=== PATIENT | female | born 1925 | race Caucasian/White ===

== ENCOUNTER 2017-03-28 14:27 | Inpatient (IN) | payer MEDICARE, MEDICAID ==
[~2017-03-28] VITALS: Ht 162.6 cm; Wt 67.7 kg
[~2017-03-28 14:27] MED LIST: ACETAMINOPHEN325 M2 PO; ACID REDUCER OR; ALBUTEROL0.09 MG/A1 IH; ALLOPURINOL100 M1 PO; ALLOPURINOL100 MG PO; AMARYL 2MG TABLE2 MG PO; AMARYL2 MG PO; AMIODARONE HYD200 MG PO; AMLO5TAB PO; ASPIR-LOW81 MG PO; ASPIRIN 325MG325 MG PO; ASPIRIN 81MG TA81 MG PO; AVAPRO 150MG T150 MG PO; AZITHROMYCIN250 MG PO; BACTRIM DS 8001 TAB PO; BENTYL GENERIC10 MG PO; BUMETANIDE 1MG T1 MG PO; CALCIUM 600 +1 EAC1 PO; DIAZEPAM IV; DIOVAN320 MG PO; FERROUS SU300 MG/5 M PO; FERROUS SULFAT325 M2 PO; FEVERALL650 MG PR; FLAGYL500 MG PO; FUROSEMIDE 20MG20 MG PO; GEMFIBROZIL600 M1 PO; GLUCAGEN HYPOKIT1 MG IJ; GLUTOSE 1515 GM PO; HUMALOG KW100 UNIT/1 SQ; HUMALOG100 U/ML SC; ICAPS AREDS FO1 EACH PO; ICAPS AREDS SO1 EACH PO; JANUVIA50 MG PO; K-DUR 1010 MEQ PO; K-DUR 20MEQ TA20 MEQ PO; LABETALOL 100M100 MG PO; LEVOTHYROXIN0.112 M1 PO; LEVOTHYROXIN0.112 MG PO; LEVOTHYROXIN0.125 MG PO; LODRANE 24D 121 C24 PO; LOPRESSOR 25MG.25 MG PO; LOPRESSOR 50 MG50 MG PO; LORAZEPAM 2MG2 MG/M1 IM; LORTAB 5/500 501 TAB PO; MIRALAX17 GM/DOSE PO; MIRALAX17 GM/PACK PO; MULTI-DAY VITA1 EACH PO; NATURAL SENNA8.6 MG PO; NITROGLYCERIN0.4 MG SL; NITROLINGU0.4 MG/ACT SL; NORVASC10 MG PO; PANTOPRAZOLE SO40 M1 PO; PLAVIX75 MG PO; PRAVACHOL20 MG PO; PRAVASTATIN 40M40 MG PO; PRESERVISION1 SGL PO; PROTONIX40 MG/PACK PO; RANITIDINE 7575 MG PO; RANITIDINE HCL150 MG OR; ROBAFEN100 MG/5 M PO; SEPTRA DS 800 M1 TAB PO; TESSALON PERLE100 MG PO; TRAMADOL 50MG T50 M1 PO; TRIAMCINOL30 GM/TUBE TP; VYTORIN 10 MG-41 TAB PO; eye vitamin OR; ferrous PO
[2017-03-28 14:30] VITALS: BP 142/64
--- NOTE | 2017-03-28 14:58 | Emergency Room Report ---
History of Present Illness Time Seen by MD Velazco Presenting Problem in Triage Pt arrived:Wheelchair Presenting Problem:PT C/O INCREASED WEAKNESS OVER THE PAST COUPLE OF DAYS. 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 N Clinical Suspician of Infection? N Mental Status: 1 - Regular (Normal Baseline) Sepsis Risk:Low Sepsis Risk Have you (or family members/close friends) recently traveled outside the [place]? N If Yes, where/when: Have you had exposure to infectious disease within the past month? N TB? Other? Specify: This 89 years old white female with see cardiac and cerebrovascular history. She has progressive shortness of breath weakness and lower extremity edema in spite of increasing her diuretics. Source patient, RN notes reviewed, family, EMS Exam Limitations no limitations ALLERGIES Coded Allergies: Penicillins (Mild, I-RASH 05/26/16) sulfamethoxazole (From BACTRIM) (05/26/16) trimethoprim (From BACTRIM) (05/26/16) Home Medications Active Scripts Amlodipine Besylate (Amlodipine) 5 MG PO DAILY #30 TAB Ref 1 Prov: 07/28/16 Ferrous Sulfate (Ferrous Sulfate Elixir 5ML [facility] [place]) 300 MG PO BID #30 Ref 3 Prov: 07/28/16 Metoprolol Tartrate (Lopressor) 50 MG PO BID #30 TAB Ref 6 Prov: 07/28/16 Pravastatin Sodium (Pravachol) 20 MG PO QHS #30 TAB Ref 6 Prov: 07/28/16 ALLOPURINOL (Allopurinol 100MG) 200 MG PO DAILY #30 TAB Ref 5 Prov: 07/28/16 AMIODARONE HCL (Amiodarone Hydrochloride) 200 MG PO DAILY #30 TAB Ref 5 Prov: 07/28/16 ASPIRIN (Aspirin) 81 MG PO DAILY #30 Ref 5 Prov: 07/28/16 Pantoprazole Sodium (Protonix) 40 MG PO DAILY #30 Ref 5 Prov: 07/28/16 Acetaminophen (Feverall 650MG SUPP) 650 MG IN Q4HP PRN INCREASED TEMP. #14 Ref 4 Prov: 07/28/16 POTASSIUM CHL (Potassium Chloride) 20 MEQ PO BID #30 Ref 5 Prov: 07/28/16 TRAMADOL HCL (Tramadol) 50 MG PO Q6HP PRN MODERATE PAIN #30 TAB Ref 4 Prov: 07/28/16 IRBESARTAN (Irbesartan) 150 MG PO BID #30 TAB Ref 5 Prov: 07/28/16 Acetaminophen (Acetaminophen Tab) 650 MG PO Q4HP PRN MILD PAIN OR FEVER #30 TAB Ref 5 Prov: 07/28/16 Sitagliptin Phosphate (Januvia) 50 MG PO DAILY-DM #30 TAB Ref 5 Prov: 07/28/16 Reported Medications Dextrose (Glutose 15) 15 GM PO PRN PRN BLOOD SUGAR #1 CALCIUM CARBONATE (Calcium) 600 MG PO DAILY Vit A/Vit C/Vit E/Zinc/Copper (Icaps Areds Formula Dr Tablet) 1 EACH PO 2XDAILY Multivitamin (Multi-Day Vitamins) 1 EACH PO DAILY LEVOTHYROXINE SOD (Synthroid) 0.1 MG PO DAILY NITROGLYCERIN (Nitrostat) 0.4 MG SL [id number] PRN CHEST PAIN History Medical History General CAD? Yes Angina: No ND: No Hypertension? Yes Hyperlipidemia? Yes CHF? No DVT? No PE? No COPD? No Asthma? No Anemia? Yes GERD? No Gastric ulcers? No GI Bleed? Yes Hernia? No Thyroid Problems? Yes Hypothyroidism? Yes CVA? No Seizures? No Diabetes? Yes Insulin Dependent: No Insulin Pump: No Home FSBS? No Renal Insuffiency? Yes End Stage Renal Disease? No UTI? No Stones? Yes BPH? No GB Disease: Yes Nephritic Syndrome? No Asplenia? No Hepatitis? No Sickle Cell Disease? No Arthritis? No Migraines? No Cataracts? Yes Glaucoma? No MRSA? No HIV? No TB? No Anxiety? No Depression? No Cancer? Yes Site: COLON More? Yes Additional hx: ATRIAL FIB. Thoracic AA CABG x 3 V Colon CA Immunization Hx DT/Tetanus Unknown Flu REFUSES Pneumonia Received In Past Surgical Hx Previous Surgery?Y CAROTID ENDARECTOMY GALLBLADDER BI-LAT CATARACTS HEART CATH/STENTS CABG 2012 Family History Family Hx Diabetes Yes CAD No Hypertension Yes Hyperlipidemia Yes Cancer Yes TB No Social History Smoking Hx Smoker: Former Smoker Tobacco: No Packs/day N/A Alcohol Alcohol: No Review of Systems All Other Systems Reviewed and Negative Constitutional no symptoms reported, see HPI, weakness Eyes no symptoms reported ENT no symptoms reported. Respiratory no symptoms reported, shortness of breath Cardiovascular no symptoms reported Gastrointestinal no symptoms reported Genitourinary no symptoms reported. Musculoskeletal no symptoms reported Skin no symptoms reported Psychiatric/Neurological no symptoms reported Physical Exam Vital Signs Vital Signs Date Time Temp Pulse Resp B/P Pulse O2 O2 Flow FiO2 Ox Delivery Rate 03/28 1510 64 16 148/61 100 03/28 1430 98.1 68 16 142/64 98 - WBC >12,000 or <4,000 or 10% bands? 2 or more SIRS Criteria Met? B/P:142/64 MAP:90 Creatinine >2.0? UA output<0.5ml/kg/hr for 2 hrs? Platelet count >100,000? Lactate >2.0mmol/1? INR >1.2 or PTT > than 60 sec? Evidence of Organ Dysfunction? Provider documented clinical suspician of infection? N Sepsis Criteria Count: 0 Sepsis Risk: Low Sepsis Risk General Appearance normal appearance, WD/WN Eye Exam - bilateral eye normal exam, bilateral eye PERRL, bilateral eye EOMI Ear, Nose, Throat hearing grossly normal, normal ENT inspection Neck normal inspection, non-tender, supple, full range of motion Respiratory Status Yes: trachea midline, chest symmetrical, non tender chest. No: respiratory distress. Lung Sounds bilateral: normal breath sounds, lungs clear. Cardiovascular normal exam, regular rate/rhythm, no peripheral edema, no gallop, no JVD, no murmur, no rub, normal peripheral pulses Gastrointestinal normal bowel sounds, normal exam, non tender, soft, no organomegaly, INCREASED ABDOMINAL (GIRTH) Extremities non-tender, normal range of motion, swelling, 2+ EDEMA Neurologic alert, new order clerk II-XII nml as tested, normal exam, oriented x 3 Lymphatic no adenopathy Medical Decision Making LABS/Meds/Orders Pt receiving controlled substance in ED? No Results/Orders Laboratory Tests 03/28/17 1450: Lactic Acid 1.8 03/28/17 1450: B-Natriuretic Peptide 521 H 03/28/17 1450: Sodium 128 L, Potassium 3.4 L, Chloride 92 L, Carbon Dioxide 28, BUN 24 H, Creatinine 1.4 H, Estimated Creat Clear 26 L, Estimated GFR (MDRD) 35 L, Glucose 179 H, Calcium 8.1 L, Total Bilirubin 0.8, AST 38 H, ALT 31, Alkaline Phosphatase 114, Creatine Kinase 44, CK-MB (CK-2) Rel Index 3.6, CK and CKMB Interp 1.6, Troponin I 0.03, Total Protein 5.4 L, Albumin 2.1 L, Globulin 3.3 H, Albumin/Globulin Ratio 0.6 L, WBC 21.7 *H, RBC 3.76 L, Hgb 9.1 L, Hct 29.1 L, MCV 77.5 L, RDW 17.0, Plt Count 425 H, MPV 6.0 L, Gran % 90.4 H, Gran # 19.6 H, Total Counted 100, Lymphocytes % 5.7 L, Monocytes % 3.7, Eosinophils % 0.1, Basophils % 0.1, Neutrophils 84 H, Band Neutrophils 1, Lymphocytes (Manual ) 11, Lymphocytes # 1.2, Monocytes (Manual) 3, Monocytes # 0.8, Eosinophils # 0.0, Eosinophils # (Manual) 1, Basophils # 0.0, Platelet Estimate NORMAL, Hypochromasia 1+, PUBS MCHC 31.2 L, MCH 24.2 L Current Medication Orders Sig/Dang Start time Last Medication Dose Route Stop Time Status Admin Sodium Chloride 10 ML PRN PRN 03/28 1445 AC IV 03/29 1439 Orders Procedure Date/time Status Decision to admit 03/28 1536 Active BRAIN NATRIURETIC PEPTIDE 03/28 1454 Complete DIFFERENTIAL-WBC 03/28 1450 Complete ELECTROCARDIOGRAM REQUEST 03/28 1440 Active IV SALINE LOCK 03/28 1440 Active CULTURE, BLOOD 03/28 1440 Active URINALYSIS/COMPLETE 03/28 1440 Active LACTIC ACID 03/28 1440 Complete CBC WITH AUTO DIFF 03/28 1440 Complete CARDIAC ENZYMES 03/28 144 Complete CHEM 12 PROFILE 03/28 1440 Complete CM/EKG CM/EKG EKG NORMAL SINUS RHYTHM 65/M.POOR R WAVE pROGRESSION BASELINE ARTIFACT NONSPECIFIC st AND t WAVE CHANGES CANNOT EXCLUDE ISCHEMIA Departure Departure Time of Disposition 1456 Disposition DC/XFER from ER to [facility] Clinical Impression Primary Impression: CHF (congestive heart failure), NYHA class IV Secondary Impressions: CAD (coronary artery disease), CVA (cerebral vascular accident), Pneumonia Condition STABLE Referrals Falluji MD,Nezar Additional Instructions I spoke with Dr. Hdz accepted the patient was admitted. For pneumonia and congestive heart failure Discharge Counseling Counseled pt/family regarding diagnosis, test results, medications/RX, home care ED Critical Care Critical Care No If Critical Care minutes are documented, the time involved in the performance of seperately reportable procedures was not counted toward critical care time documented. I directly delivered medical care to this critically ill and/or injured patient. Timely evaluation and treatment was necessary to address the significant organ system(s) dysfunction present in this patient. at 1605
[2017-03-28 15:05] LABS: LYMPH # 1.2 K/mm3 (0.7-4.5); LYMPH % 5.7 % (10-50.0)
--- NOTE | 2017-03-28 15:08 | RADIOLOGY REPORT PS360 ---
CHEST-PORTABLE HISTORY: Weakness and chest pain WEAKNESS ORDERING PHYSICIAN: Amrit Lopez MD PATIENT AGE: 89 years COMPARISON: 07/21/2016 FINDINGS: There is cardiomegaly. Prior median sternotomy. Pulmonary vessels do not appear engorged Bilateral lower lobe opacification with bilateral effusions . There is old right humeral neck fracture. No acute bony anomalies. IMPRESSION: Bilateral lower lobe airspace disease consistent with bilateral pneumonia with bilateral effusions
[2017-03-28 15:10] LABS: HEMOGLOBIN 9.1 g/dL (12.2-16.2)
[2017-03-28 15:35] LABS: NEUTROPHILS 84 % (42-76)
--- NOTE | 2017-03-28 16:18 | HISTORY AND PHYSICAL REPORT ---
History and Physical ([facility]) Date of admission: 03/28/17 Chief complaint: weak and SOB History: History of Present Illness: Ms Candelaria is an 89 year old female with a history of HTN, hypothyroidism, DM, CAD , chronic renal insufficiency, paroxysmal At Fib, colon cancer and left hemorrhagic stroke who presented to [facility] ER when she was unable to walk. She reports not feeling well for the past 3-4 days with SOB and a slight cough. She has not been eating or drinking as well. She denies CP, nausea , vomiting and diarrhea. She has not had a fever. She was in the office of [facility] 03/21/17 with Shortness of breath with exertion and leg edema for 3 days and Bumex was increased to bid. She was to follow up today. when her son was unable to get her up on her walker, he brought her to the ER. CXR in the ER revealed a pneumonia with WBC of 21.7. Past Medical History: Medical History: CAD? Yes Angina: No [place]: No Hypertension? Yes Hyperlipidemia? Yes CHF? Yes DVT? No PE? No COPD? No Asthma? No Anemia? Yes GERD? No Gastric ulcers? No GI Bleed? Yes Hernia? No Thyroid Problems? Yes Hypothyroidism? Yes CVA? No Seizures? No Diabetes? Yes Insulin Dependent: No Insulin Pump: No Home FSBS? No Renal Insuffiency? Yes UTI? No Stones? Yes BPH? No GB Disease: Yes Nephritic Syndrome? No Asplenia? No Hepatitis? No Sickle Cell Disease? No Arthritis? No Migraines? No Cataracts? Yes Glaucoma? No MRSA? No HIV? No TB? No Anxiety? No Depression? No Cancer? Yes Site: COLON More? Yes Additional hx: ATRIAL FIB. Thoracic AA CABG x 3 V Colon CA Surgical history: Previous Surgery?Y CAROTID ENDARECTOMY GALLBLADDER BI-LAT CATARACTS HEART CATH/STENTS CABG 2012 Medications: Active Scripts Metoprolol Tartrate (Lopressor) 50 MG PO BID #30 TAB Ref 6 Prov: 07/28/16 Pravastatin Sodium (Pravachol) 20 MG PO QHS #30 TAB Ref 6 Prov: 07/28/16 ALLOPURINOL (Allopurinol 100MG) 200 MG PO DAILY #30 TAB Ref 5 Prov: 07/28/16 AMIODARONE HCL (Amiodarone Hydrochloride) 200 MG PO DAILY #30 TAB Ref 5 Prov: 07/28/16 ASPIRIN (Aspirin) 81 MG PO DAILY #30 Ref 5 Prov: 07/28/16 Pantoprazole Sodium (Protonix) 40 MG PO DAILY #30 Ref 5 Prov: 07/28/16 TRAMADOL HCL (Tramadol) 50 MG PO Q6HP PRN MODERATE PAIN #30 TAB Ref 4 Prov: 07/28/16 Acetaminophen (Acetaminophen Tab) 650 MG PO Q4HP PRN MILD PAIN OR FEVER #30 TAB Ref 5 Prov: 07/28/16 Sitagliptin Phosphate (Januvia) 50 MG PO DAILY-DM #30 TAB Ref 5 Prov: 07/28/16 Discontinued Scripts Amlodipine Besylate (Amlodipine) 5 MG PO DAILY #30 TAB Ref 1 Prov: 07/28/16 DC: 03/28/17 1657 Ferrous Sulfate (Ferrous Sulfate Elixir 5ML [facility]) 300 MG PO BID #30 Ref 3 Prov: 07/28/16 DC: 03/28/17 1657 Acetaminophen (Feverall 650MG SUPP) 650 MG CO Q4HP PRN INCREASED TEMP. #14 Ref 4 Prov: 07/28/16 DC: 03/28/17 1657 POTASSIUM CHL (Potassium Chloride) 20 MEQ PO BID #30 Ref 5 Prov: 07/28/16 DC: 03/28/17 1657 IRBESARTAN (Irbesartan) 150 MG PO BID #30 TAB Ref 5 Prov: 07/28/16 DC: 03/28/17 1657 Reported Medications LEVOTHYROXINE SOD (Synthroid) 0.125 MG PO DAILY Ferrous Sulfate 325 MG PO BID Valsartan (Diovan 160MG) 160 MG PO DAILY Bumetanide (Bumetanide 1MG Tablet) 1 MG PO BID Polyethylene Glycol 3350 (Miralax) 17 GM PO DAILY Acetaminophen (Tylenol) 325 MG PO 2 Q4H PRN CALCIUM CARBONATE (Calcium) 600 MG PO DAILY Vit A/Vit C/Vit E/Zinc/Copper (Icaps Areds Formula Dr Tablet) 1 EACH PO 2XDAILY Multivitamin (Multi-Day Vitamins) 1 EACH PO DAILY NITROGLYCERIN (Nitrostat) 0.4 MG SL [id number] PRN CHEST PAIN Discontinued Reported Medications Dextrose (Glutose 15) 15 GM PO PRN PRN BLOOD SUGAR #1 DC: 03/28/17 1657 Allergies: Coded Allergies: Penicillins (Mild, I-RASH 05/26/16) sulfamethoxazole (From BACTRIM) (05/26/16) trimethoprim (From BACTRIM) (05/26/16) Family History: Family history: Postive for: CAD, DM, HTN. Social History: Smoking Hx Tobacco: No Smoker: Former Smoker Type: N/A Packs/day: N/A Are you exposed to second hand No Alcohol: Alcohol: No Hx of Drug Use: Drug Use? No Patient's support system is: excellent Review of Systems: Constitutional Positive for: weak. ENT No: ear ache, sore throat. Cardiovascular Positive for: edema. No: chest pain, palpitations. Respiratory Positive for: shortness of air, non-productive. GI No: abdominal pain, constipation, diarrhea, hematemeis, hematochezia, melena, nausea, vomitting. (female) No: hematuria. Neurological No: confusion, seizure, syncope. Musculoskeletal Positive for: extremity swelling (weak legs). Physical Exam: Vital signs: 1ST Vital Signs Result Date Time Pulse Ox 98 03/28 1430 B/P 142/64 03/28 1430 Temp 98.1 03/28 1430 Pulse 68 03/28 1430 Resp 16 03/28 1430 Exam: General appearance: alert, no acute distress, frail Eyes: anicteric ENT: pharynx normal, dry mucous membranes Neck: supple, lymphadenopathy (absent), thyroid (normal) Cardiovascular: regular rate & rhythm, murmur Respiratory: few bibasilar crackles ABD: soft, no tenderness (large), bowel sounds present Extremities: bilateral 2+ pitting leg edema Musculoskeletal: STACK Skin: dry, warm, grayish Radiology results: Results: 03/28/17 CXR IMPRESSION: Bilateral lower lobe airspace disease consistent with bilateral pneumonia with bilateral effusions Diagnosis(es): 1. Pneumonia 2. CAD (coronary artery disease) 3. CHF (congestive heart failure), NYHA class IV 4. Hypertension Status: Chronic 5. Chronic anemia Status: Chronic 6. Diabetes mellitus type 2 Status: Chronic 7. Hypokalemia Status: Resolved 8. Hyponatremia Status: Acute 9. History of atrial fibrillation Plan: ABX and duonebs; sliding scale insulin; some of home meds ordered (Nuria Fernandez APRN) Diagnosis(es): 1. Bilateral pneumonia Status: Acute 2. CAD (coronary artery disease) Status: Chronic 3. CHF (congestive heart failure), NYHA class IV Status: Chronic 4. Hypertension Status: Chronic 5. Chronic anemia Status: Chronic 6. Diabetes mellitus type 2 Status: Chronic 7. Hypokalemia Status: Acute 8. Hyponatremia Status: Acute 9. History of atrial fibrillation Status: Chronic 10. Colon cancer Status: Chronic 11. Chronic renal insufficiency Status: Chronic 12. Leukocytosis Status: Acute 13. Anemia Status: Acute 14. Hypothyroidism Status: Chronic Plan: Patient seen and agree with above note. (Thiago Arguello MD) at 1712 at 1751
--- OUTSIDE RECORDS SUMMARY | 2017-03-28 16:21 | External Medical Summary Rpt ---
Demographics Preferred Language Setswana Marital Status Unknown Faith Affiliation Unknown Race Unknown Ethnic Group Unknown Author Author , Organization [employer] Address Unknown Phone Unavailable Purpose Continuity of Care Document - through 2016 Immunization No patient found.
--- OUTSIDE RECORDS SUMMARY | 2017-03-28 16:21 | External Medical Summary Rpt ---
Demographics Preferred Language Bengali Marital Status Unknown Christianity Affiliation Unknown Race Unknown Ethnic Group Unknown Author Author , Organization [employer] Address Unknown Phone Unavailable Purpose Continuity of Care Document - through 2016 Immunization No patient found.
--- OUTSIDE RECORDS SUMMARY | 2017-03-28 16:21 | External Medical Summary Rpt ---
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 285.9 Anemia [facility] [id number] Chest pain [facility] 401.1 Benign [facility] n [id number] Diabetes [facility] type 2 [facility] [id number] Active [facility] 786.50 [id number] Chronic [facility] E87.1 HYPO-OSMOLA LITY AND HYPONATREMI A G45.9 TRANSIENT CEREBRAL ISCHEMIC ATTACK, UNSPECIFIED I10 ESSENTIAL (PRIMARY) HYPERTENS N I25.10 ATHSCL HEART DISEASE OF [place] CORONARY ARTERY W/O ANG PCTRS I48.91 UNSPECIFIED ATRIAL FIBRILLATIO N I50.9 HEART FAILURE, UNSPECIFIED I63.9 CEREBRAL INFARCTION, UNSPECIFIED N28.9 DISORDER OF KIDNEY AND URETER, UNSPECIFIED S32.519A FRACTURE OF SUPERIOR RIM OF UNSP PUBIS, INIT FOR CLOS FX S32.599A OTH FRACTURE OF UNSP PUBIS, INIT ENCNTR FOR CLOSED FRACTURE Z53.21 PROC/TRTMT NOT CRD OUT D/T PT LV BEF SEEN BY [facility] PROV Allergies, Adverse Reactions, Alerts Type Drug Allergy Adverse Reaction to Substance Substance Reaction Severity Penicillin Unknown Unknown Penicillin G Unknown Unknown Medications Na ND Rx Da Fi Fi Am Da Di Ph RX Ph St me C No te ll ll ou ys ag ar # ys at s nt no ma ic us Or Da si cy ia de te s n re d SO 00 09 0 No DI 40 -1 UM 96 3- Lo 62 20 ng BI 50 13 er CA 2 RB Ac ti 8. ve 4% AL DE 00 09 0 No XT 40 -1 RO 97 3- Lo SE 92 20 ng 20 13 er 5% 9 -W Ac AT ti ER ve IV SO LN SO 00 09 0 No DI 40 -1 UM 97 3- Lo 98 20 ng CH 30 13 er LO 9 RI Ac DE ti ve 0. 9% SO EMILIE TI ON GL 51 09 0 No IM 07 -1 EP 90 3- Lo IR 42 20 ng ID 52 13 er E 0 2 Ac MG ti ve TA BL ET SY 00 09 0 No NT 07 -1 HR 49 3- Lo OI 29 20 ng D 69 13 er 11 0 2 Ac MC ti G ve TA BL ET FE 00 09 0 No RR 60 -1 OU 30 3- Lo S 17 20 ng JERONIMO 92 13 er LF 9 AT Ac E ti 32 ve 5 MG TA BL ET IS 00 09 0 No OV 27 -1 UE 01 3- Lo -3 31 20 ng 70 65 13 er 2 76 Ac % ti IN ve FU S XAVI TT LE RA 63 09 0 No D- 80 -1 SA 70 3- Lo LI 10 20 ng NE 07 13 er 5A FL Ac US ti H ve 10 ML SY RI NG E SO 00 09 1 No DI 40 -1 UM 97 2- Lo 98 20 ng CH 30 13 er LO 9 RI Ac DE ti ve 0. 9% SO EMILIE TI ON 66 09 0 No PI 55 -1 RI 30 2- Lo N 00 20 ng 32 10 13 er 5 1 MG Ac ti TA ve BL ET Sa 63 09 1 No li 80 -1 ne 70 2- Lo 10 20 ng Fl 07 13 er us 5 h Ac 10 ti ML ve Sy ri ng e NI 00 09 0 No TR 28 -1 O- 10 2- Lo BI 32 20 ng D 60 13 er 2% 8 Ac OI ti NT ve ME NT LA 00 09 0 No BE 17 -1 TA 24 2- Lo LO 36 20 ng L 46 13 er HC 0 L Ac 10 ti 0 ve MG TA BL ET FS 09 1 No -1 BL 2- Lo OO 20 ng D 13 er JERONIMO GA Ac R ti ve HU 00 09 1 No MA 00 -1 LO 27 2- Lo G 51 20 ng 10 01 13 er 0 7 UN Ac IT ti S/ ve ML AL CL 51 09 1 No OP 07 -1 ID 90 2- Lo OG 55 20 ng RE 72 13 er L 0 75 Ac ti MG ve TA BL ET NA 48 09 0 No C 10 -1 60 70 2- Lo 0 03 20 ng MG 15 13 er 0 CA Ac PS ti UL ve E Ge 00 09 1 No mf 90 -1 ib 45 2- Lo ro 37 20 ng zi 96 13 er l 1 60 Ac 0M ti G ve Ta bl et CO 51 09 1 No AV 07 -1 90 2- Lo TA 78 20 ng TI 22 13 er N 0 SO Ac DI ti UM ve 40 MG TA B La 00 09 1 No be 17 -1 ta 24 2- Lo lo 36 20 ng l 51 13 er 20 0 0 Ac MG ti ve Ta bl et Vital Signs 08-01-2013 19:00 Name Value Interpretat Reference Comment ion Range Body 97.7 [degF] Temperature BP 65 mm[Hg] Diastolic BP Systolic 141 mm[Hg] Heart 72 /min Rate/Pulse Respiratory 18 /min Rate 08-01-2013 16:00 Name Value Interpretat Reference Comment ion Range O2% 97 % 07-31-2013 09:22 Name Value Interpretat Reference Comment ion Range Height 134.62 cm Weight 73.029 kg Measured 07-31-2013 07:12 Name Value Interpretat Reference Comment ion Range Body 98.8 [degF] Temperature BP 77 mm[Hg] Diastolic BP Systolic 186 mm[Hg] Heart 96 /min Rate/Pulse O2% 97 % Respiratory 20 /min Rate Weight 0 [oz_av] Measured Results Labs Lab Lab Date Result Refere Interp Status Commen Order Detail nces retati t Range on Glucose BldC [facility]comtr[facility] (08-01-2013 17:03) Glucose 171 70-110 complet BldC 013 mg/dl ed Glucomt 17:03 r-nc OCCULT BLOOD (08-01-2013 11:38) Hemocul POSITIV NEG complet t sp1 013 E ed Stl Ql 11:38 Glucose BldC Glucomtr-nc (08-01-2013 11:37) Glucose 147 70-110 complet BldC 013 mg/dl ed Glucomt 11:37 r-nc BASIC METABOLIC PANEL (08-01-2013 06:25) Glucose 156 74-106 complet 013 mg/dL ed Bld-mCn 06:25 c BUN 18 7-18 complet Bld-mCn 013 mg/dL ed c 06:25 Creat 1.1 0.6-1.0 complet SerPl-m 013 mg/dL ed Cnc 06:25 ESTIMAT 42 50-200 complet ED 013 ML/MIN ed CREATIN 06:25 INE CLEARAN CE GFR 47 59- complet (ESTIMA 013 ML/MIN ed CHUCK) 06:25 Sodium 141 136-145 complet SerPl-s 013 mmoL/L ed Cnc 06:25 Potassi 4.1 3.5-5.1 complet um 013 mmoL/L ed SerPl-s 06:25 Cnc Chlorid 107 98-107 complet e 013 mmoL/L ed SerPl-s 06:25 Cnc CO2 26 21.0-32 complet SerPl-s 013 mmoL/L .0 ed Cnc 06:25 Calcium 8.8 8.5-10. complet 013 mg/dL 1 ed SerPl-m 06:25 Cnc Glucose BldC Glucomtr-mCnc (08-01-2013 06:23) Glucose 163 70-110 complet BldC 013 mg/dl ed Glucomt 06:23 r-mCnc Glucose BldC Glucomtr-mCnc (07-31-2013 20:17) Glucose 152 70-110 complet BldC 013 mg/dl ed Glucomt 20:17 r-mCnc Glucose BldC Glucomtr-mCnc (07-31-2013 16:53) Glucose 147 70-110 complet BldC 013 mg/dl ed Glucomt 16:53 r-mCnc Glucose BldC Glucomtr-mCnc (07-31-2013 11:58) Glucose 133 70-110 complet BldC 013 mg/dl ed Glucomt 11:58 r-mCnc Vit B12 Ser-mCnc (07-31-2013 10:52) Vit B12 231 200-110 complet 013 pg/mL 0 ed Ser-mCn 10:52 c Folate SerPl-mCnc (07-31-2013 10:52) Folate 22.4 () complet SerPl-m 013 ng/mL ed Cnc 10:52 Ferritin SerPl-mCnc (07-31-2013 10:52) Ferriti 12 8-388 complet n 013 ng/mL ed SerPl-m 10:52 Cnc Retics/100 RBC Fr Auto (07-31-2013 10:52) Retics/ 2.4 % 0.9-3.2 complet 100 RBC 013 ed Fr 10:52 Auto COMPREHENSIVE METABOLIC PANEL (07-31-2013 07:25) Glucose 161 74-106 complet 013 mg/dL ed Bld-mCn 07:25 c BUN 20 7-18 complet Bld-mCn 013 mg/dL ed c 07:25 Creat 1.2 0.6-1.0 complet SerPl-m 013 mg/dL ed Cnc 07:25 ESTIMAT 39 50-200 complet ED 013 ML/MIN ed CREATIN 07:25 INE CLEARAN CE GFR 43 59- complet (ESTIMA 013 ML/MIN ed CHUCK) 07:25 Sodium 140 136-145 complet SerPl-s 013 mmoL/L ed Cnc 07:25 Potassi 4.3 3.5-5.1 complet um 013 mmoL/L ed SerPl-s 07:25 Cnc Chlorid 105 98-107 complet e 013 mmoL/L ed SerPl-s 07:25 Cnc CO2 27 21.0-32 complet SerPl-s 013 mmoL/L .0 ed Cnc 07:25 Calcium 8.7 8.5-10. complet 013 mg/dL 1 ed SerPl-m 07:25 Cnc Prot 7.2 6.4-8.2 complet SerPl-m 013 gm/dL ed Cnc 07:25 Albumin 3.7 3.4-5.0 complet 013 gm/dL ed SerPl-m 07:25 Cnc Globuli 3.5 1.3-3.2 complet n 013 gm/dL ed Ser-mCn 07:25 c Albumin 1.1 UNK 1.1-1.8 complet /Glob 013 ed SerPl-m 07:25 Rto Bilirub 09-12-2 0.3 0.2-1.0 complet 013 mg/dL ed SerPl-m 07:25 Cnc AST 12-2 9 U/L 15-37 complet SerPl-c 013 ed Cnc 07:25 ALT -12-2 26 U/L 30-65 complet SerPl-c 013 ed Cnc 07:25 ALP -12-2 175 U/L 50-136 complet SerPl-c 013 ed Cnc 07:25 CBC with AUTO DIFF (07-31-2013 07:25) WBC # 09-12-2 8.1 4.8-10. complet Bld 013 K/MM3 8 ed Auto 07:25 RBC # -12-2 4.03 4.2-5.4 complet Bld 013 M/mm3 ed Auto 07:25 Hgb -12-2 9.3 12.2-16 complet Bld-mCn 013 g/dL .2 ed c 07:25 Hct Fr 07-31-2 30.7 % 37.0-47 complet Bld 013 .0 ed 07:25 MCV RBC -12-2 76.2 fl 82.2-97 complet 013 .8 ed 07:25 MCH RBC -12-2 23.1 pg 27-31.2 complet Qn 013 ed Auto 07:25 MEAN -12-2 30.3 31.8-35 complet CORPUSC 013 g/dl .4 ed ULAR 07:25 HGB CONC RDW RBC -12-2 16.0 % 11.5-17 complet Auto 013 .5 ed 07:25 Platele -12-2 306 142-424 complet t Bld 013 K/mm3 ed Ql 07:25 Manual MEAN 12-2 7.1 fl 7.4-10. complet PLATELE 013 4 ed T 07:25 VOLUME Granulo -12-2 65.0 % 37.0-80 complet cytes 013 .0 ed Fr Bld 07:25 Auto LYMPH % -12-2 20.7 % 10-50.0 complet 013 ed 07:25 Monocyt 09-12-2 6.9 % 1.7-9.3 complet es Fr 013 ed Bld 07:25 Auto Eosinop -12-2 6.3 % 0.1-12. complet hil Fr 013 0 ed Bld 07:25 Auto Basophi 09-12-2 1.0 % 0.1-2.0 complet ls Fr 013 ed Bld 07:25 Auto Granulo 5.3 1.8-7.8 complet cytes # 013 K/mm3 ed Bld 07:25 Auto Lymphoc 1.7 0.7-4.5 complet ytes Fr 013 K/mm3 ed Bld 07:25 Auto Monocyt 0.6 0.1-1.0 complet es # 013 K/mm3 ed Bld 07:25 Auto Eosinop 0.5 0.0-0.4 complet hil # 013 K/mm3 ed Bld 07:25 Auto Basophi 0.1 0-0.2 complet ls # 013 K/MM3 ed Bld 07:25 Auto Encounters Encounter Start End Date Code Location Performer Type Date Inpatient NAYELI Mari ([place]) 3 07:33 3 19:05 [facility]
--- OUTSIDE RECORDS SUMMARY | 2017-03-28 16:21 | External Medical Summary Rpt ---
Author Author , Organization [employer] Address Unknown Phone Unavailable Care Team Providers Care [employer] Name Role Phone Jaimee FLOYD, Unavailable Unavailable Jaimee FLOYD Purpose Continuity of Care Document - 07-31-2013 through 2016 Problems Code Diagnosis DOS Provider Status 244.9 Hypothyroid [facility] 272.4 Hyperlipide [facility] 285.9 Anemia [facility] [id number] Chest pain [facility] 401.1 Benign [facility] n [id number] Diabetes [facility] type 2 [facility] [id number] Active [facility] 786.50 [id number] Chronic [facility] E87.1 HYPO-OSMOLA LITY AND HYPONATREMI A G45.9 TRANSIENT CEREBRAL ISCHEMIC ATTACK, UNSPECIFIED I10 ESSENTIAL (PRIMARY) HYPERTENS N I25.10 ATHSCL HEART DISEASE OF [place] CORONARY ARTERY W/O ANG PCTRS I48.91 UNSPECIFIED ATRIAL FIBRILLATIO N I50.9 HEART FAILURE, UNSPECIFIED I63.9 CEREBRAL INFARCTION, UNSPECIFIED N28.9 DISORDER OF KIDNEY AND URETER, UNSPECIFIED S32.519A FRACTURE OF SUPERIOR RIM OF UNSP PUBIS, INIT FOR CLOS FX S32.599A OTH FRACTURE OF UNSP PUBIS, INIT ENCNTR FOR CLOSED FRACTURE Z53.21 PROC/TRTMT NOT CRD OUT D/T PT LV BEF SEEN BY [facility] PROV Allergies, Adverse Reactions, Alerts Type [...] 0M ti G ve Ta bl et MO 51 09 1 No AV 07 -1 [...] nces retati t Range on Glucose BldC Glucomtr-[facility] (08-01-2013 17:03) Glucose 171 70-110 complet [...] NAYELI Mari ([place]) 3 07:33 3 19:05 [facility]
--- OUTSIDE RECORDS SUMMARY | 2017-03-28 16:21 | External Medical Summary Rpt ---
Author Author [employer] Organization [employer] Address Unknown Phone Unavailable Purpose Continuity of Care Document - through 2016
--- OUTSIDE RECORDS SUMMARY | 2017-03-28 16:21 | External Medical Summary Rpt ---
Author Author IOANA Rosales, IOANA Rosales Organization [employer] Address Unknown Phone Unavailable
--- OUTSIDE RECORDS SUMMARY | 2017-03-28 16:21 | External Medical Summary Rpt ---
Author Author IOANA Rosales, IOANA Rosales Organization [employer] Address Unknown Phone Unavailable
[2017-03-28] MEDS ORDERED: FERROUS SULFAT200 M1 PO (16:56)
[2017-03-28] MEDS ORDERED: BUMETANIDE 1MG T1 MG PO (16:57)
[2017-03-28] MEDS ORDERED: DIOVAN160 MG PO (16:57)
[2017-03-28] MEDS ORDERED: MIRALAX17 GM PO (16:57)
[2017-03-28] MEDS ORDERED: TYLENOL325 MG PO (16:59)
[2017-03-28 17:32] VITALS: BP 123/57
[2017-03-28 18:16] VITALS: BP 123/57
[2017-03-28 19:26] VITALS: BP 148/67
[2017-03-28 19:33] VITALS: BP 148/67
[2017-03-28 23:48] VITALS: BP 136/69
[2017-03-29] VITALS (8 sets, daily range): BP systolic 94–137; BP diastolic 46–74
--- NOTE | 2017-03-29 07:19 | PHARMACY CLINIC NOTE ---
Patient Demographics Patient Demographics Admission date: 03/28/17 Date: 03/29/17 Time: 07 Allergies Coded Allergies: Penicillins (Mild, I-RASH 05/26/16) sulfamethoxazole (From BACTRIM) (05/26/16) trimethoprim (From BACTRIM) (05/26/16) HEIGHT- FT: 5 IN: 4.00 K.828 VTE General Information Labs: Laboratory Tests 03/28 1450 Hematology Hgb (12.2 - 16.2 g/dL) 9.1 L Hct (37.0 - 47.0 %) 29.1 L Plt Count (142 - 424 K/mm3) 425 H Disclaimer The following section includes nursing documentation that has been pulled in for pharmacy review. Patient's VTE score: 4 Patient's VTE Risk: LOW RISK Clinical trial participant? No VTE prophylaxis [id number] [id number] VTE prophylaxis ordered? Yes Type of prophylaxis/treatment: Lovenessx at 0719
[2017-03-29] MEDS ORDERED: PANTOPRAZOLE SO40 M1 PO (07:22)
--- NOTE | 2017-03-29 08:12 | ACUTE CARE PROGRESS NOTE (QUA) ---
Progress Notes Subjective Date 03/29/17 Time 0809 Note Patient feeling better today. Denies any cough or shortness of breath. States she slept well. Objective Findings Last VS-Temp:97.69 B/P:131/55 Pulse:59 Resp:20 SaO2:98 OXYGEN Last weight lbs:145 oz:2 K.828 Method:Bed Scales Laboratory Tests 03/29/17 0616: POC Glucose 122 H 03/28/179: POC Glucose 193 H 03/28/17 1450: Lactic Acid 1.8 03/28/17 1450: B-Natriuretic Peptide 521 H 03/28/17 1450: Sodium 128 L, Potassium 3.4 L, Chloride 92 L, Carbon Dioxide 28, BUN 24 H, Creatinine 1.4 H, Estimated Creat Clear 26 L, Estimated GFR (MDRD) 35 L, Glucose 179 H, Calcium 8.1 L, Total Bilirubin 0.8, AST 38 H, ALT 31, Alkaline Phosphatase 114, Creatine Kinase 44, CK-MB (CK-2) Rel Index 3.6, CK and CKMB Interp 1.6, Troponin I 0.03, Total Protein 5.4 L, Albumin 2.1 L, Globulin 3.3 H, Albumin/Globulin Ratio 0.6 L, WBC 21.7 *H, RBC 3.76 L, Hgb 9.1 L, Hct 29.1 L, MCV 77.5 L, RDW 17.0, Plt Count 425 H, MPV 6.0 L, Gran % 90.4 H, Gran # 19.6 H, Total Counted 100, Lymphocytes % 5.7 L, Monocytes % 3.7, Eosinophils % 0.1, Basophils % 0.1, Neutrophils 84 H, Band Neutrophils 1, Lymphocytes (Manual ) 11, Lymphocytes # 1.2, Monocytes (Manual) 3, Monocytes # 0.8, Eosinophils # 0.0, Eosinophils # (Manual) 1, Basophils # 0.0, Platelet Estimate NORMAL, Hypochromasia 1+, PUBS MCHC 31.2 L, MCH 24.2 L, Mycoplasma pneumon IgM NON- REACTIVE Microbiology 03/28 1450 BLOOD: Anaerobic Blood Culture - RECD 03/28 145 BLOOD: Aerobic Blood Culture - RECD 03/28 1450 BLOOD: Anaerobic Blood Culture - RECD 03/28 1450 BLOOD: Aerobic Blood Culture - RECD Exam General appearance: alert, awake, no acute distress Cardiovascular: regular rate & rhythm Respiratory: faint basilar rales - improving ABD: non-distended, normal bowel sounds, no rebound, soft, no tenderness, no guarding Extremities: no peripheral edema Reviewed: chest x-ray - bilateral pneumonia with effusions Assessment/Plan Problem List 1. Bilateral pneumonia Status: Acute 2. CAD (coronary artery disease) Status: Chronic 3. CHF (congestive heart failure), NYHA class IV Status: Chronic 4. Hypertension Status: Chronic 5. Chronic anemia Status: Chronic 6. Diabetes mellitus type 2 Status: Chronic 7. Hypokalemia Status: Acute 8. Hyponatremia Status: Acute 9. History of atrial fibrillation Status: Chronic 10. Colon cancer Status: Chronic 11. Chronic renal insufficiency Status: Chronic 12. Leukocytosis Status: Acute 13. Anemia Status: Acute 14. Hypothyroidism Status: Chronic Plan: Still awaiting complete blood count today to check on white blood cell count. Still awaiting culture results. Will continue current care. This inpt stay is expected to cross 2 MNs from start of care Yes (Jaimee Chou) Subjective Date 03/29/17 Time 0740 Assessment/Plan Problem List 1. Bilateral pneumonia Status: Acute 2. CAD (coronary artery disease) Status: Chronic 3. CHF (congestive heart failure), NYHA class IV Status: Chronic 4. Hypertension Status: Chronic 5. Chronic anemia Status: Chronic 6. Diabetes mellitus type 2 Status: Chronic 7. Hypokalemia Status: Acute 8. Hyponatremia Status: Acute 9. History of atrial fibrillation Status: Chronic 10. Colon cancer Status: Chronic 11. Chronic renal insufficiency Status: Chronic 12. Leukocytosis Status: Acute 13. Anemia Status: Acute 14. Hypothyroidism Status: Chronic Plan: Pt seen and examined. No resp. distress. She seems confused about the events of yesterday. Concur with plan of treatment. (Robyn Mari MD) at 0811 at 1348
[2017-03-29 09:13] LABS: HEMOGLOBIN 9.1 g/dL (12.2-16.2); LYMPH # 1.7 K/mm3 (0.7-4.5)
--- NOTE | 2017-03-29 09:50 | RADIOLOGY REPORT PS360 ---
CHEST-PORTABLE HISTORY: Pneumonia, shortness of air R/O PNEUMONIA ORDERING PHYSICIAN: Robyn Mari MD PATIENT AGE: 89 years COMPARISON: 03/28/2017 FINDINGS: Prior median sternotomy. Cardiomegaly without failure. Diffuse bilateral lower lobe pneumonia with bilateral effusions once again noted not significantly changed. IMPRESSION: No change bilateral pneumonia with effusions.
[2017-03-30] VITALS (7 sets, daily range): BP systolic 109–127; BP diastolic 44–59
[2017-03-30 04:44] LABS: ALLEN'S TEST ACCEPTABLE; ARTERIAL ABE 2.4 MMOL/L (-2.4-+2.3); ARTERIAL PO2 80.8 MMHG (80-100); OXYGEN 2LPM
--- NOTE | 2017-03-30 08:26 | ACUTE CARE PROGRESS NOTE (QUA) ---
Progress Notes Subjective Date 03/30/17 Time 0820 Note Patient states she feels better this morning. She does have some shortness of breath. She is not coughing. She states she slept well. She has eaten most of her breakfast. Objective Findings Last VS-Temp:97.6 B/P:127/44 Pulse:58 Resp:20 SaO2:100 OXYGEN Last weight lbs:145 oz:5 K.913 Method:Bed Scales Laboratory Tests 03/30/17 0625: POC Glucose 161 H 03/30/17 0444: ABG pH 7.43, ABG pCO2 (Temp Corrct 41.0, ABG pO2 (Temp Correct 80.8, ABG HCO3 26.7 H, ABG Total CO2 28.0 H, ABG O2 Sat (Calculated) 92.2, ABG Base Excess 2.4 H, Tomas Test ACCEPTABLE, Blood Gas Comments L RADIAL 03/29/17 1949: POC Glucose 174 H 03/29/17 1705: POC Glucose 140 H 03/29/17 1214: POC Glucose 159 H 03/29/17 0900: WBC 24.2 *H, RBC 3.78 L, Hgb 9.1 L, Hct 30.1 L, MCV 79.5 L, RDW 16.8, Plt Count 327, MPV 6.3 L, Gran % 88.5 H, Gran # 21.4 H, Lymphocytes % 7.0 L, Monocytes % 4.2, Eosinophils % 0.1, Basophils % 0.1, Lymphocytes # 1.7, Monocytes # 1.0, Eosinophils # 0.0, Basophils # 0.0, PUBS MCHC 30.2 L, MCH 24.0 L Exam General appearance: alert, awake, no acute distress Cardiovascular: regular rate & rhythm Respiratory: faint basilar rales ABD: non-distended, normal bowel sounds, no rebound, soft, no tenderness, no guarding Extremities: no peripheral edema Assessment/Plan Problem List 1. Bilateral pneumonia Status: Acute 2. CAD (coronary artery disease) Status: Chronic 3. CHF (congestive heart failure), NYHA class IV Status: Chronic 4. Hypertension Status: Chronic 5. Chronic anemia Status: Chronic 6. Diabetes mellitus type 2 Status: Chronic 7. Hypokalemia Status: Acute 8. Hyponatremia Status: Acute 9. History of atrial fibrillation Status: Chronic 10. Colon cancer Status: Chronic 11. Chronic renal insufficiency Status: Chronic 12. Leukocytosis Status: Acute 13. Anemia Status: Acute 14. Hypothyroidism Status: Chronic Plan: WBC increased yesterday. Will repeat labs this am. Pt is clinically improving. This inpt stay is expected to cross 2 MNs from start of care Yes (Jaimee Chou) Subjective Date 03/30/17 Time 0839 Assessment/Plan Problem List 1. Bilateral pneumonia Status: Acute 2. CAD (coronary artery disease) Status: Chronic 3. CHF (congestive heart failure), NYHA class IV Status: Chronic 4. Hypertension Status: Chronic 5. Chronic anemia Status: Chronic 6. Diabetes mellitus type 2 Status: Chronic 7. Hypokalemia Status: Acute 8. Hyponatremia Status: Acute 9. History of atrial fibrillation Status: Chronic 10. Colon cancer Status: Chronic 11. Chronic renal insufficiency Status: Chronic 12. Leukocytosis Status: Acute 13. Anemia Status: Acute 14. Hypothyroidism Status: Chronic Plan: Concur with above. Blood culture ID still pending. Will need skilled care at discharge. (Robyn Mari MD) at 0826 at 0840
[2017-03-30 08:56] LABS: HEMOGLOBIN 9.1 g/dL (12.2-16.2); LYMPH # 1.4 K/mm3 (0.7-4.5)
[2017-03-30 10:31] LABS: NEUTROPHILS 89 % (42-76)
[2017-03-31] VITALS (8 sets, daily range): BP systolic 129–147; BP diastolic 58–72
[2017-03-31 09:33] LABS: HEMOGLOBIN 8.6 g/dL (12.2-16.2); LYMPH # 1.2 K/mm3 (0.7-4.5); LYMPH % 6.4 % (10-50.0)
[2017-03-31 10:37] LABS: NEUTROPHILS 90 % (42-76)
--- NOTE | 2017-03-31 11:38 | ACUTE CARE PROGRESS NOTE (QUA) ---
Progress Notes Subjective Date 03/31/17 Time 1135 Note Pt states she feels a little better today. Still SOA off and on and coughing. Slept well and ate well this am. Denies any pain. Objective Findings Last VS-Temp:97.9 B/P:136/58 Pulse:70 Resp:20 SaO2:96 OXYGEN Last weight lbs:149 oz:3 K.67 Method:Bed Scales Laboratory Tests 03/31/17 0915: Sodium 124 L, Potassium 4.7, Chloride 93 L, Carbon Dioxide 28, BUN 35 H, Creatinine 1.8 H, Estimated Creat Clear 23 L, Estimated GFR (MDRD) 26 L, Glucose 171 H, Calcium 8.6, WBC 18.1 H, RBC 3.61 L, Hgb 8.6 L, Hct 28.8 L, MCV 79.8 L, RDW 16.8, Plt Count 311, MPV 6.2 L, Gran % 89.0 H, Gran # 16.2 H , Total Counted 100, Lymphocytes % 6.4 L, Monocytes % 3.8, Eosinophils % 0.6, Basophils % 0.1, Neutrophils 90 H, Lymphocytes (Manual) 6 L, Lymphocytes # 1.2 , Monocytes (Manual) 4, Monocytes # 0.7, Eosinophils # 0.1, Basophils # 0.0, Platelet Estimate NORMAL, Hypochromasia 1+, Anisocytosis 1+, Microcytosis 1+, PUBS MCHC 29.9 L, MCH 23.8 L 03/31/17 0637: POC Glucose 162 H 03/30/17 1948: POC Glucose 191 H 03/30/17 1656: POC Glucose 160 H Exam General appearance: alert, awake, no acute distress Cardiovascular: regular rate & rhythm Respiratory: faint basilar rales ABD: non-distended, normal bowel sounds, no rebound, soft, no tenderness, no guarding Extremities: no peripheral edema Assessment/Plan Problem List 1. Bilateral pneumonia Status: Acute 2. CAD (coronary artery disease) Status: Chronic 3. CHF (congestive heart failure), NYHA class IV Status: Chronic 4. Hypertension Status: Chronic 5. Chronic anemia Status: Chronic 6. Diabetes mellitus type 2 Status: Chronic 7. Hypokalemia Status: Acute 8. Hyponatremia Status: Acute 9. History of atrial fibrillation Status: Chronic 10. Colon cancer Status: Chronic 11. Chronic renal insufficiency Status: Chronic 12. Leukocytosis Status: Acute 13. Anemia Status: Acute 14. Hypothyroidism Status: Chronic Plan: Still awaiting culture results. HGB has decreased as has her sodium. Will keep overnight and repeat labs tomorrow. This inpt stay is expected to cross 2 MNs from start of care Yes (Jaimee Chou) Subjective Date 03/31/17 Assessment/Plan Problem List 1. Bilateral pneumonia Status: Acute 2. CAD (coronary artery disease) Status: Chronic 3. CHF (congestive heart failure), NYHA class IV Status: Chronic 4. Hypertension Status: Chronic 5. Chronic anemia Status: Chronic 6. Diabetes mellitus type 2 Status: Chronic 7. Hypokalemia Status: Acute 8. Hyponatremia Status: Acute 9. History of atrial fibrillation Status: Chronic 10. Colon cancer Status: Chronic 11. Chronic renal insufficiency Status: Chronic 12. Leukocytosis Status: Acute 13. Anemia Status: Acute 14. Hypothyroidism Status: Chronic Plan: Pt seen and examined this AM. Appears comfortable and clinically improving. Will conitnue current antibiotics pending cultures and repeat labs in AM. SHe has chronic blood loss anemia from her known inoperable colon cancer and may need another blood tranfusion which she requires periodically. (Robyn Mari MD) at 1142 at 1234
--- NOTE | 2017-04-04 16:17 | DISCHARGE SUMMARY STANDARD ---
Discharge Summary (FCA2) Date of admission: 03/28/17 Date of discharge: 03/31/17 Problem List: 1. Bilateral pneumonia 2. CAD (coronary artery disease) 3. CHF (congestive heart failure), NYHA class IV 4. Hypertension 5. Chronic anemia 6. Diabetes mellitus type 2 7. Hypokalemia 8. Hyponatremia 9. History of atrial fibrillation 10. Colon cancer 11. Chronic renal insufficiency 12. Leukocytosis 13. Anemia 14. Hypothyroidism History of present illness: History of Present Illness: Ms Candelaria is an 89 year old female with a history of HTN, hypothyroidism, DM, CAD , chronic renal insufficiency, paroxysmal At Fib, colon cancer and left hemorrhagic stroke who presented to [facility] ER when she was unable to walk. She reports not feeling well for the past 3-4 days with SOB and a slight cough. She was not eating or drinking as well. She denied CP, nausea , vomiting and diarrhea. She did not had a fever. She was in the office of [facility] 03/21/17 with Shortness of breath with exertion and leg edema for 3 days and Bumex was increased to bid. She was to follow up. When her son was unable to get her up on her walker, he brought her to the ER. CXR in the ER revealed a pneumonia with WBC of 21.7. Exam on admission: Vital signs: 1ST Vital Signs Result Date Time Pulse Ox 98 03/28 1430 B/P 142/64 03/28 1430 Temp 98.1 03/28 1430 Pulse 68 / 1430 Resp 16 03/28 1430 Exam: General appearance: alert, no acute distress, frail Eyes: anicteric ENT: pharynx normal, dry mucous membranes Neck: supple, lymphadenopathy (absent), thyroid (normal) Cardiovascular: regular rate & rhythm, murmur Respiratory: few bibasilar crackles ABD: soft, no tenderness (large), bowel sounds present Extremities: bilateral 2+ pitting leg edema Musculoskeletal: STACK Skin: dry, warm, grayish Hospital Course: Patient was started on Duonebs and Levaquin on admission. She improved each day and began to eat better. Plan was for her to go [facility]; she was anemic but HGB was stable. In the PM of 03/31/17 the Nurse noted shallow respiratory effort and she was unresponsive. DNR status was honored. Patient then . Laboratory data this visit: 03/31/17 0915: Sodium 124 L, Potassium 4.7, Chloride 93 L, Carbon Dioxide 28, BUN 35 H, Creatinine 1.8 H, Estimated Creat Clear 23 L, Estimated GFR (MDRD) 26 L, Glucose 171 H, Calcium 8.6, WBC 18.1 H, RBC 3.61 L, Hgb 8.6 L, Hct 28.8 L, MCV 79.8 L, RDW 16.8, Plt Count 311, MPV 6.2 L, Gran % 89.0 H, Gran # 16.2 H , Total Counted 100, Lymphocytes % 6.4 L, Monocytes % 3.8, Eosinophils % 0.6, Basophils % 0.1, Neutrophils 90 H, Lymphocytes (Manual) 6 L, Lymphocytes # 1.2 , Monocytes (Manual) 4, Monocytes # 0.7, Eosinophils # 0.1, Basophils # 0.0, Platelet Estimate NORMAL, Hypochromasia 1+, Anisocytosis 1+, Microcytosis 1+, PUBS MCHC 29.9 L, MCH 23.8 L 03/31/17 0637: POC Glucose 162 H 03/30/17 1948: POC Glucose 191 H 03/30/17 1656: POC Glucose 160 H 03/30/17 0625: POC Glucose 161 H 03/30/17 0444: ABG pH 7.43, ABG pCO2 (Temp Corrct 41.0, ABG pO2 (Temp Correct 80.8, ABG HCO3 26.7 H, ABG Total CO2 28.0 H, ABG O2 Sat (Calculated) 92.2, ABG Base Excess 2.4 H, Tomas Test ACCEPTABLE, Blood Gas Comments L RADIAL 03/29/17 1949: POC Glucose 174 H 03/29/17 1705: POC Glucose 140 H 03/29/17 1214: POC Glucose 159 H 03/29/17 0900: WBC 24.2 *H, RBC 3.78 L, Hgb 9.1 L, Hct 30.1 L, MCV 79.5 L, RDW 16.8, Plt Count 327, MPV 6.3 L, Gran % 88.5 H, Gran # 21.4 H, Lymphocytes % 7.0 L, Monocytes % 4.2, Eosinophils % 0.1, Basophils % 0.1, Lymphocytes # 1.7, Monocytes # 1.0, Eosinophils # 0.0, Basophils # 0.0, PUBS MCHC 30.2 L, MCH 24.0 L 03/29/17 0616: POC Glucose 122 H 03/28/17 2039: POC Glucose 193 H 03/28/17 1450: Lactic Acid 1.8 03/28/17 1450: B-Natriuretic Peptide 521 H 03/28/17 1450: Sodium 128 L, Potassium 3.4 L, Chloride 92 L, Carbon Dioxide 28, BUN 24 H, Creatinine 1.4 H, Estimated Creat Clear 26 L, Estimated GFR (MDRD) 35 L, Glucose 179 H, Calcium 8.1 L, Total Bilirubin 0.8, AST 38 H, ALT 31, Alkaline Phosphatase 114, Creatine Kinase 44, CK-MB (CK-2) Rel Index 3.6, CK and CKMB Interp 1.6, Troponin I 0.03, Total Protein 5.4 L, Albumin 2.1 L, Globulin 3.3 H, Albumin/Globulin Ratio 0.6 L, WBC 21.7 *H, RBC 3.76 L, Hgb 9.1 L, Hct 29.1 L, MCV 77.5 L, RDW 17.0, Plt Count 425 H, MPV 6.0 L, Gran % 90.4 H, Gran # 19.6 H, Total Counted 100, Lymphocytes % 5.7 L, Monocytes % 3.7, Eosinophils % 0.1, Basophils % 0.1, Neutrophils 84 H, Band Neutrophils 1, Lymphocytes (Manual ) 11, Lymphocytes # 1.2, Monocytes (Manual) 3, Monocytes # 0.8, Eosinophils # 0.0, Eosinophils # (Manual) 1, Basophils # 0.0, Platelet Estimate NORMAL, Hypochromasia 1+, PUBS MCHC 31.2 L, MCH 24.2 L, Mycoplasma pneumon IgM NON- REACTIVE Imagin03/28/17 CXR IMPRESSION: Bilateral lower lobe airspace disease consistent with bilateral pneumonia with bilateral effusions 03/29/17 CXR IMPRESSION: No change bilateral pneumonia with effusions. Disposition: Body was released to [facility]. at 1617
== END 2017-03-31 23:32 | disposition expired | DRG 194 ==
LOC: ER 14:27 → 2ND 15:41
PROVIDERS: Emergency Medicine; Family Medicine
DX: J18.9 Pneumonia, unspecified organism (principal); C18.9 Malignant neoplasm of colon, unspecified; I50.9 Heart failure, unspecified; E87.1 Hypo-osmolality and hyponatremia; I10 Essential (primary) hypertension; D50.0 Iron deficiency anemia secondary to blood loss (chronic); E11.9 Type 2 diabetes mellitus without complications; I48.91 Unspecified atrial fibrillation; Z95.1 Presence of aortocoronary bypass graft; Z95.5 Presence of coronary angioplasty implant and graft; E87.6 Hypokalemia